=== PATIENT | male | born 1985 | race Caucasian/White ===

== ENCOUNTER 2017-09-26 07:34 | Day surgery (SDC) | payer MEDICAID ==
[~2017-09-26] VITALS: Ht 175.3 cm; Wt 95.9 kg
[~2017-09-26 07:34] MED LIST: CYCL-1 PO; HYDR-565 PO; IBUP-1985 PO; KETO10TA2 PO; NO HOME MEDS; ONDA4TAB6 PO
[2017-09-26] MEDS ORDERED: MIDAZolam 5mg/ml 2ml vial ONE (07:43)
[2017-09-26] MEDS ORDERED: fentaNYL/PF 50MCG/1 ML 2ML syringe ONE (07:43)
[2017-09-26] MEDS ORDERED: LIDOcaine Viscous 15ml cup ONE (07:43)
[2017-09-26 08:20] VITALS: BP 119/79
[2017-09-26 10:05] VITALS: BP 114/67
[2017-09-26 10:15] VITALS: BP 114/68
[2017-09-26 10:25] VITALS: BP 121/64
[2017-09-26 10:35] VITALS: BP 116/62
== END 2017-09-26 10:40 | disposition home or self-care (01) ==
LOC: GI LAB 07:34
PROVIDERS: ATTEND Internal Medicine Gastroenterology
DX: K63.89 Other specified diseases of intestine (principal); K29.50 Unspecified chronic gastritis without bleeding
CPT/HCPCS: 43239; 45380; 99152; 99153; J2250; J3010; J7030; A4620; G0500

== ENCOUNTER 2017-12-15 09:46 | Emergency (ER) | payer MEDICAID ==
[~2017-12-15 09:46] MED LIST changes: -CYCL-1 PO; -HYDR-565 PO; -IBUP-1985 PO; -KETO10TA2 PO; -ONDA4TAB6 PO
== END 2017-12-15 10:53 | disposition left against medical advice (07) ==
LOC: ER 09:46
DX: M54.9 Dorsalgia, unspecified (principal); R42 Dizziness and giddiness; Z53.21 Procedure and treatment not carried out due to patient leaving prior to being seen by health care provider

== ENCOUNTER → 2017-12-20 | Emergency (ER) | payer MEDICAID ==
[~2017-12-20] VITALS: Ht 175.3 cm; Wt 90.0 kg
[2017-12-20 11:57] LABS: BASOPHILS % (AUTO) 0.5 % (0-1); EOSINOPHILS # (AUTO) 0.1 X10'3 (0-0.9); EOSINOPHILS % (AUTO) 1.4 % (0-6); HEMATOCRIT 46.3 % (42.0-52.0); HEMOGLOBIN 16.2 g/dl (14.0-17.9); LYMPHOCYTES # (AUTO) 1.7 X10'3 (1.1-4.8); LYMPHOCYTES % (AUTO) 28.9 % (21-51); MEAN CORPUSCULAR HEMOGLOBIN 31.3 PG (27.0-31.0); MEAN CORPUSCULAR VOLUME 89.5 FL (78-98); MEAN PLATELET VOLUME 8.6 FL (7.4-10.4); MONOCYTES # (AUTO) 0.2 X10'3 (0-0.9); MONOCYTES % (AUTO) 3.9 % (2-12); NEUTROPHILS # (AUTO) 3.8 X10'3 (1.8-7.7); NEUTROPHILS % (AUTO) 65.3 % (42-75); PLATELET COUNT 168 X10'3 (140-440); RED BLOOD COUNT 5.17 X10'6 (4.70-6.10); RED CELL DISTRIBUTION WIDTH 12.9 % (11.5-14.5); WHITE BLOOD COUNT 5.8 X10'3 (4.5-11.0)
[2017-12-20 12:10] LABS: ALANINE AMINOTRANSFERASE 29 U/L (12-78); ALBUMIN 4.2 G/DL (3.4-5.0); ALBUMIN/GLOBULIN RATIO 1.3 (1.1-1.5); ALKALINE PHOSPHATASE 74 IU/L (46-116); ANION GAP 5 (8-16); ASPARTATE AMINO TRANSFERASE 20 U/L (10-37); BILIRUBIN,TOTAL 0.3 MG/DL (0.1-1.0); BLOOD UREA NITROGEN 14 MG/DL (7-18); BUN/CREATININE RATIO 15.6 (5.4-32.0); CALCIUM 8.8 MG/DL (8.5-10.1); CHLORIDE 106 MMOL/L (99-107); GLUCOSE 103 MG/DL (70-104); POTASSIUM 4.2 MMOL/L (3.5-5.1); SODIUM 141 MMOL/L (135-145); TOTAL CARBON DIOXIDE 29.7 MMOL/L (24-32); TOTAL PROTEIN 7.4 G/DL (6.4-8.2); eGFR > 90 ML/MIN
[2017-12-20 14:11] LABS: CLARITY,URINE CLOUDY (Clear); COLOR,URINE YELLOW (Yellow); GLUCOSE, URINE NEGATIVE (Neg); KETONES,URINE NEGATIVE (Neg); LEUKOCYTE ESTERASE ,URINE NEGATIVE (Neg); NITRITES, URINE NEGATIVE (Neg); OCCULT BLOOD,URINE NEGATIVE (Neg); PH,URINE 7.5 (4.8-8.0); PROTEIN,URINE TRACE mg/dl (Neg); UA COLLECTION TYPE CLN CATCH MIDSTREAM; UROBILINOGEN,URINE 0.2 E.U/dL (0.2-1.0)
[2017-12-20 14:24] LABS: AMORPHOUS PHOSPHATES 3+; MUCUS STRANDS MODERATE /LPF (Neg); SQUAMOUS EPITHELIAL CELL,UR FEW /LPF (FEW)
[2017-12-20 14:25] LABS: BACTERIA,URINE FEW /HPF (Neg); RBC,URINE 0-2 /HPF (0-2); WBC,URINE 0-4 /HPF (0-4)
[2017-12-20 16:41] VITALS: BP 130/88
== END | disposition left against medical advice (07) ==
LOC: ER 11:03
DX: R51 Headache (principal); R27.0 Ataxia, unspecified; G60.9 Hereditary and idiopathic neuropathy, unspecified; G89.29 Other chronic pain; F12.10 Cannabis abuse, uncomplicated; F17.200 Nicotine dependence, unspecified, uncomplicated; F15.10 Other stimulant abuse, uncomplicated; Z91.030 Bee allergy status
CPT/HCPCS: 36415; 70450; 80053; 81001; 84484; 85025; 93005; 99285

== ENCOUNTER 2018-07-25 13:55 | Emergency (ER) | payer MEDICAID ==
[~2018-07-25] VITALS: Ht 175.3 cm; Wt 97.5 kg
[2018-07-25 15:12] VITALS: BP 136/76
[2018-07-25 15:18] LABS: BASOPHILS % (AUTO) 0.4 % (0-1); EOSINOPHILS # (AUTO) 0.2 X10'3 (0-0.9); EOSINOPHILS % (AUTO) 2.3 % (0-6); HEMATOCRIT 48.9 % (42.0-52.0); HEMOGLOBIN 16.5 g/dl (14.0-17.9); LYMPHOCYTES # (AUTO) 2.2 X10'3 (1.1-4.8); LYMPHOCYTES % (AUTO) 32.4 % (21-51); MEAN CORPUSCULAR HEMOGLOBIN 30.7 PG (27.0-31.0); MEAN CORPUSCULAR HGB CONC 33.8 % (33.0-36.5); MEAN CORPUSCULAR VOLUME 90.9 FL (78-98); MEAN PLATELET VOLUME 8.8 FL (7.4-10.4); MONOCYTES # (AUTO) 0.3 X10'3 (0-0.9); MONOCYTES % (AUTO) 4.7 % (2-12); NEUTROPHILS # (AUTO) 4.1 X10'3 (1.8-7.7); NEUTROPHILS % (AUTO) 60.2 % (42-75); PLATELET COUNT 182 X10'3 (140-440); RED BLOOD COUNT 5.38 X10'6 (4.70-6.10); RED CELL DISTRIBUTION WIDTH 12.7 % (11.5-14.5); WHITE BLOOD COUNT 6.8 X10'3 (4.5-11.0)
[2018-07-25 15:28] LABS: ALANINE AMINOTRANSFERASE 36 U/L (12-78); ALBUMIN 4.2 G/DL (3.4-5.0); ALBUMIN/GLOBULIN RATIO 1.3 (1.1-1.5); ALKALINE PHOSPHATASE 89 IU/L (46-116); ANION GAP 13 (8-16); ASPARTATE AMINO TRANSFERASE 21 U/L (10-37); BILIRUBIN,TOTAL 0.3 MG/DL (0.1-1.0); BLOOD UREA NITROGEN 8 MG/DL (7-18); BUN/CREATININE RATIO 10.4 (5.4-32.0); CALCIUM 8.8 MG/DL (8.5-10.1); CHLORIDE 103 MMOL/L (99-107); CREATININE 0.77 MG/DL (0.60-1.10); GLUCOSE 94 MG/DL (70-104); LIPASE 120 U/L (73-393); POTASSIUM 4.4 MMOL/L (3.5-5.1); SODIUM 140 MMOL/L (135-145); TOTAL CARBON DIOXIDE 24.3 MMOL/L (24-32); TOTAL PROTEIN 7.5 G/DL (6.4-8.2); eGFR > 90 ML/MIN
[2018-07-25 16:07] LABS: INR 0.9 INR; PROTHROMBIN TIME 9.6 SECONDS (9.0-12.0)
[2018-07-25 16:18] LABS: CLARITY,URINE CLEAR (Clear); COLOR,URINE STRAW (Yellow); GLUCOSE, URINE NEGATIVE (Neg); KETONES,URINE NEGATIVE (Neg); LEUKOCYTE ESTERASE ,URINE NEGATIVE (Neg); NITRITES, URINE NEGATIVE (Neg); OCCULT BLOOD,URINE TRACE-INTACT (Neg); PROTEIN,URINE NEGATIVE (Neg); UROBILINOGEN,URINE 0.2 E.U/dL (0.2-1.0)
[2018-07-25 16:22] LABS: UA COLLECTION TYPE VOIDED
[2018-07-25 16:40] LABS: BACTERIA,URINE FEW /HPF (Neg); RBC,URINE 0-2 /HPF (0-2); SQUAMOUS EPITHELIAL CELL,UR FEW /LPF (FEW); WBC,URINE 0-4 /HPF (0-4)
[2018-07-25] MEDS ORDERED: PENI500T2 PO (17:10)
== END 2018-07-25 17:18 | disposition home or self-care (01) ==
LOC: ER 13:55
DX: R10.32 Left lower quadrant pain (principal); R11.2 Nausea with vomiting, unspecified; K08.89 Other specified disorders of teeth and supporting structures; R42 Dizziness and giddiness; R19.7 Diarrhea, unspecified; G89.29 Other chronic pain; K21.9 Gastro-esophageal reflux disease without esophagitis; F17.200 Nicotine dependence, unspecified, uncomplicated; F12.10 Cannabis abuse, uncomplicated; F15.10 Other stimulant abuse, uncomplicated; Z91.030 Bee allergy status; Z79.899 Other long term (current) drug therapy
CPT/HCPCS: 36415; 80053; 81001; 83690; 85025; 85610; 99283

== ENCOUNTER 2018-10-27 02:25 | Emergency (ER) | payer MEDICAID ==
[~2018-10-27] VITALS: Ht 175.3 cm; Wt 99.2 kg
[2018-10-27 02:59] VITALS: BP 162/105
[2018-10-27] MEDS ORDERED: ketorolac trometh inj. 60 MG/2 ML VIAL IM ONE (03:05)
[2018-10-27] MEDS ORDERED: ondansetron 4mg rapidly disintigrating tab PO ONE (03:05)
[2018-10-27] MEDS ORDERED: HYDROcodone/acetaminophen 5mg/325mg tablet PO ONE (03:05)
[2018-10-27 03:20] LABS: CLARITY,URINE SLIGHTLY CLOUDY (Clear); COLOR,URINE YELLOW (Yellow); GLUCOSE, URINE NEGATIVE (Neg); KETONES,URINE TRACE mg/dl (Neg); LEUKOCYTE ESTERASE ,URINE NEGATIVE (Neg); NITRITES, URINE NEGATIVE (Neg); OCCULT BLOOD,URINE LARGE (Neg); PH,URINE 5.5 (4.8-8.0); PROTEIN,URINE TRACE mg/dl (Neg); UROBILINOGEN,URINE 0.2 E.U/dL (0.2-1.0)
[2018-10-27 03:27] LABS: UA COLLECTION TYPE CLN CATCH MIDSTREAM
[2018-10-27 03:28] LABS: RBC,URINE 50-100 /HPF (0-2); WBC,URINE 0-4 /HPF (0-4)
[2018-10-27 03:29] LABS: BACTERIA,URINE FEW /HPF (Neg); SQUAMOUS EPITHELIAL CELL,UR FEW /LPF (FEW)
[2018-10-27] MEDS ORDERED: azithromycin 250mg tablet PO ONE (04:05)
[2018-10-27] MEDS ORDERED: CefTRIAXone 1000mg IM Kit (w/lidocaine diluent) IM ONE (04:05)
[2018-10-27] MEDS ORDERED: DOXY100C43 PO (04:07)
[2018-10-27 06:43] LABS: URINE AMPHETAMINE SCREEN NEGATIVE (Neg); URINE BARBITUATE SCREEN NEGATIVE (Neg); URINE BENZODIAZEPINES SCREEN NEGATIVE (Neg); URINE CANNABINOID SCREEN POSITIVE (Neg); URINE COCAINE SCREEN NEGATIVE (Neg); URINE METHADONE SCREEN NEGATIVE (Neg); URINE OPIATE SCREEN NEGATIVE (Neg); URINE PHENCYCLIDINE SCREEN NEGATIVE (Neg)
== END 2018-10-27 04:23 | disposition home or self-care (01) ==
LOC: ER 02:26
DX: N45.1 Epididymitis (principal); R31.9 Hematuria, unspecified; K21.9 Gastro-esophageal reflux disease without esophagitis; G89.29 Other chronic pain; M54.9 Dorsalgia, unspecified; F12.90 Cannabis use, unspecified, uncomplicated; F15.90 Other stimulant use, unspecified, uncomplicated; Z91.030 Bee allergy status
CPT/HCPCS: 76870; 80305; 81001; 96372; 99284; J0696; J1885

== ENCOUNTER 2018-12-13 16:39 | Emergency (ER) | payer MEDICAID ==
[~2018-12-13] VITALS: Ht 175.3 cm; Wt 98.2 kg
[2018-12-13 16:43] VITALS: BP 167/78
[2018-12-13] MEDS ORDERED: metoclopramide 5 mg/ml inj IM ONE (18:15)
== END 2018-12-13 18:42 | disposition home or self-care (01) ==
LOC: ER 16:39
DX: F43.21 Adjustment disorder with depressed mood (principal); K21.9 Gastro-esophageal reflux disease without esophagitis; G89.29 Other chronic pain; F12.90 Cannabis use, unspecified, uncomplicated; F15.90 Other stimulant use, unspecified, uncomplicated; Z88.0 Allergy status to penicillin; Z91.030 Bee allergy status
CPT/HCPCS: 99284; J2765

== ENCOUNTER 2019-07-10 14:11 | Emergency (ER) | payer MEDICAID ==
[~2019-07-10] VITALS: Ht 175.3 cm; Wt 97.7 kg
[2019-07-10] MEDS ORDERED: normal saline 1000ML IV soln IVB ONE (14:30)
[2019-07-10 14:56] LABS: BASOPHILS % (AUTO) 0.7 % (0-1); EOSINOPHILS # (AUTO) 0.2 X10'3 (0-0.9); HEMATOCRIT 45.5 % (42.0-52.0); HEMOGLOBIN 15.6 g/dl (14.0-17.9); LYMPHOCYTES # (AUTO) 2.6 X10'3 (1.1-4.8); LYMPHOCYTES % (AUTO) 42.5 % (21-51); MEAN CORPUSCULAR HEMOGLOBIN 31.4 PG (27.0-31.0); MEAN CORPUSCULAR HGB CONC 34.3 g/dL (33.0-36.5); MEAN CORPUSCULAR VOLUME 91.7 FL (78-98); MEAN PLATELET VOLUME 9.2 FL (7.4-10.4); MONOCYTES # (AUTO) 0.4 X10'3 (0-0.9); MONOCYTES % (AUTO) 5.9 % (2-12); NEUTROPHILS # (AUTO) 2.9 X10'3 (1.8-7.7); NEUTROPHILS % (AUTO) 46.9 % (42-75); PLATELET COUNT 157 X10'3 (140-440); RED BLOOD COUNT 4.96 X10'6 (4.70-6.10); RED CELL DISTRIBUTION WIDTH 12.9 % (11.5-14.5); WHITE BLOOD COUNT 6.1 X10'3 (4.5-11.0)
[2019-07-10 15:11] LABS: ALANINE AMINOTRANSFERASE 16 U/L (12-78); ALBUMIN 3.8 G/DL (3.4-5.0); ALBUMIN/GLOBULIN RATIO 1.2 (1.1-1.5); ALKALINE PHOSPHATASE 82 IU/L (46-116); ANION GAP 9 (8-16); ASPARTATE AMINO TRANSFERASE 18 U/L (10-37); BILIRUBIN,TOTAL 0.4 MG/DL (0.1-1.0); BLOOD UREA NITROGEN 10 MG/DL (7-18); BUN/CREATININE RATIO 13.9 (5.4-32.0); CALCIUM 8.1 MG/DL (8.5-10.1); CHLORIDE 104 MMOL/L (99-107); CREATININE 0.72 MG/DL (0.60-1.10); GLUCOSE 86 MG/DL (70-104); SODIUM 138 MMOL/L (135-145); TOTAL CARBON DIOXIDE 24.7 MMOL/L (24-32); TOTAL PROTEIN 6.9 G/DL (6.4-8.2); eGFR > 90 ML/MIN
[2019-07-10] MEDS ORDERED: HYDROcodone/acetaminophen 5mg/325mg tablet PO ONE (15:45)
[2019-07-10] MEDS ORDERED: ketorolac trometh. 30mg/ml inj. IV ONE (15:45)
[2019-07-10 15:58] VITALS: BP 143/93
== END 2019-07-10 16:00 | disposition home or self-care (01) ==
LOC: ER 14:12
DX: R07.89 Other chest pain (principal); K21.9 Gastro-esophageal reflux disease without esophagitis; G89.29 Other chronic pain; F12.90 Cannabis use, unspecified, uncomplicated; F15.90 Other stimulant use, unspecified, uncomplicated; Z22.7 Latent tuberculosis; Z98.890 Other specified postprocedural states; Z88.0 Allergy status to penicillin; Z91.030 Bee allergy status
CPT/HCPCS: 36415; 71045; 80053; 85025; 93005; 96374; 99284; J1885; J7030

== ENCOUNTER 2019-09-21 11:26 | Emergency (ER) | payer MEDICAID ==
[~2019-09-21] VITALS: Ht 175.3 cm; Wt 95.8 kg
[2019-09-21 12:50] VITALS: BP 104/62
== END 2019-09-21 13:19 | disposition home or self-care (01) ==
LOC: ER 11:26
DX: J20.9 Acute bronchitis, unspecified (principal); B34.9 Viral infection, unspecified; K21.9 Gastro-esophageal reflux disease without esophagitis; G89.29 Other chronic pain; F12.90 Cannabis use, unspecified, uncomplicated; F15.90 Other stimulant use, unspecified, uncomplicated; Z98.890 Other specified postprocedural states; Z88.0 Allergy status to penicillin; Z91.030 Bee allergy status
CPT/HCPCS: 71045; 99283

== ENCOUNTER 2022-12-27 11:08 | Emergency (ER) | payer MEDICAID ==
[~2022-12-27] VITALS: Ht 175.3 cm; Wt 121.0 kg
[2022-12-27 11:09] VITALS: BP 152/80
[2022-12-27] MEDS ORDERED: azithromycin 250mg tablet PO ONE (12:05)
[2022-12-27] MEDS ORDERED: CefTRIAXone 500MG IM Kit w/LIDOcaine IM ONE (12:05)
== END 2022-12-27 12:31 | disposition home or self-care (01) ==
LOC: ER 11:09
DX: A64 Unspecified sexually transmitted disease (principal); G89.29 Other chronic pain; F12.90 Cannabis use, unspecified, uncomplicated; K21.9 Gastro-esophageal reflux disease without esophagitis; F15.90 Other stimulant use, unspecified, uncomplicated; Z88.0 Allergy status to penicillin; Z79.899 Other long term (current) drug therapy; Z91.030 Bee allergy status; Z98.890 Other specified postprocedural states
CPT/HCPCS: 36415; 87491; 87591; 96372; 99283; J0696

== ENCOUNTER 2023-01-24 11:24 | Emergency (ER) | payer MEDICAID ==
[~2023-01-24] VITALS: Ht 175.3 cm; Wt 100.0 kg
[2023-01-24 11:45] LABS: BASOPHILS % (AUTO) 0.6 % (0-1); EOSINOPHILS # (AUTO) 0.1 X10'3 (0-0.9); EOSINOPHILS % (AUTO) 1.6 % (0-6); HEMOGLOBIN 15.3 g/dl (14.0-17.9); LYMPHOCYTES # (AUTO) 2.4 X10'3 (1.1-4.8); MEAN CORPUSCULAR VOLUME 91.2 FL (78-98); MEAN PLATELET VOLUME 8.5 FL (7.4-10.4); MONOCYTES # (AUTO) 0.3 X10'3 (0-0.9); MONOCYTES % (AUTO) 4.1 % (2-12); NEUTROPHILS % (AUTO) 58.7 % (42-75); PLATELET COUNT 152 X10'3 (140-440); RED BLOOD COUNT 4.93 X10'6 (4.70-6.10); RED CELL DISTRIBUTION WIDTH 12.8 % (11.5-14.5); WHITE BLOOD COUNT 6.8 X10'3 (4.5-11.0)
[2023-01-24 11:58] LABS: ALANINE AMINOTRANSFERASE 40 U/L (12-78); ALBUMIN 3.7 G/DL (3.4-5.0); ALBUMIN/GLOBULIN RATIO 1.3 (1.1-1.5); ALKALINE PHOSPHATASE 85 IU/L (46-116); ANION GAP 11 (8-16); ASPARTATE AMINO TRANSFERASE 28 U/L (10-37); BILIRUBIN,TOTAL 0.3 MG/DL (0.1-1.0); BLOOD UREA NITROGEN 14 MG/DL (7-18); BUN/CREATININE RATIO 16.5 (10.0-20.0); CHLORIDE 106 MMOL/L (99-107); CREATININE 0.85 MG/DL (0.60-1.10); GLUCOSE 115 MG/DL (70-104); POTASSIUM 3.9 MMOL/L (3.5-5.1); SODIUM 138 MMOL/L (135-145); TOTAL CARBON DIOXIDE 21.1 MMOL/L (24-32); TOTAL PROTEIN 6.5 G/DL (6.4-8.2); eGFR > 90 ML/MIN
[2023-01-24] MEDS ORDERED: ketorolac trometh. 30mg/ml inj. IM ONE (13:10)
[2023-01-24] MEDS ORDERED: ketorolac tromethamine 15mg/ml inj. IM ONE (13:15)
[2023-01-24 13:48] LABS: D-DIMER < 0.19 MG/L FEU (0-0.50)
[2023-01-24 13:51] VITALS: BP 118/77
== END 2023-01-24 14:11 | disposition home or self-care (01) ==
LOC: ER 11:24
DX: R09.1 Pleurisy (principal); K21.9 Gastro-esophageal reflux disease without esophagitis; F12.90 Cannabis use, unspecified, uncomplicated; F15.20 Other stimulant dependence, uncomplicated; Z88.0 Allergy status to penicillin; Z91.030 Bee allergy status
CPT/HCPCS: 36415; 71045; 80053; 83880; 84145; 84484; 85025; 85379; 93005; 96372; 99285; J1885

== ENCOUNTER 2024-02-09 15:52 | Emergency (ER) | payer MEDICAID ==
[~2024-02-09] VITALS: Ht 175.3 cm; Wt 103.0 kg
[2024-02-09 16:34] LABS: BASOPHILS # (AUTO) 0.1 X10'3 (0-0.2); BASOPHILS % (AUTO) 0.7 % (0-1); EOSINOPHILS # (AUTO) 0.1 X10'3 (0-0.9); EOSINOPHILS % (AUTO) 1.2 % (0-6); HEMATOCRIT 46.5 % (42.0-52.0); HEMOGLOBIN 15.8 g/dl (14.0-17.9); LYMPHOCYTES # (AUTO) 2.7 X10'3 (1.1-4.8); LYMPHOCYTES % (AUTO) 32.9 % (21-51); MEAN CORPUSCULAR HEMOGLOBIN 31.1 PG (27.0-31.0); MEAN CORPUSCULAR HGB CONC 33.9 g/dL (33.0-36.5); MEAN CORPUSCULAR VOLUME 91.6 FL (78-98); MEAN PLATELET VOLUME 9.1 FL (7.4-10.4); MONOCYTES # (AUTO) 0.3 X10'3 (0-0.9); MONOCYTES % (AUTO) 3.2 % (2-12); PLATELET COUNT 174 X10'3 (140-440); RED BLOOD COUNT 5.08 X10'6 (4.70-6.10); WHITE BLOOD COUNT 8.1 X10'3 (4.5-11.0)
[2024-02-09 16:58] LABS: ALANINE AMINOTRANSFERASE 37 U/L (12-78); ALBUMIN/GLOBULIN RATIO 1.2 (1.1-1.5); ALKALINE PHOSPHATASE 86 IU/L (46-116); ANION GAP 15 (8-16); ASPARTATE AMINO TRANSFERASE 24 U/L (10-37); BILIRUBIN,TOTAL 0.5 MG/DL (0.1-1.0); BLOOD UREA NITROGEN 11 MG/DL (7-18); BUN/CREATININE RATIO 10.4 (10.0-20.0); CALCIUM 8.6 MG/DL (8.5-10.1); CHLORIDE 102 MMOL/L (99-107); CREATININE 1.06 MG/DL (0.60-1.10); GLUCOSE 158 MG/DL (70-104); POTASSIUM 3.3 MMOL/L (3.5-5.1); PRO BRAIN NATRIURETIC PEPTIDE 50 PG/ML (0-125); SODIUM 139 MMOL/L (135-145); TOTAL CARBON DIOXIDE 22.3 MMOL/L (24-32); TOTAL PROTEIN 7.3 G/DL (6.4-8.2); eCRCL 93 ML/MIN; eGFR 77 ML/MIN
[2024-02-09] MEDS ORDERED: BUDE10.22 INH (17:08)
[2024-02-09] MEDS ORDERED: ALBU8HFA INH (17:08)
[2024-02-09] MEDS: ipratropium/albuterol 3ml nebule NEB ONE (17:30)
[2024-02-09 17:32] VITALS: PULSE 58; RESP 14; O2SAT 99
[2024-02-09 17:41] VITALS: PULSE 67; RESP 14; O2SAT 99
[2024-02-09 17:51] VITALS: BP 155/106; PULSE 78; RESP 27; TEMP 98.5; O2SAT 98
== END 2024-02-09 17:53 | disposition home or self-care (01) ==
LOC: ER 15:52
DX: J44.9 Chronic obstructive pulmonary disease, unspecified (principal); K21.9 Gastro-esophageal reflux disease without esophagitis; F12.90 Cannabis use, unspecified, uncomplicated; F15.90 Other stimulant use, unspecified, uncomplicated; Z88.0 Allergy status to penicillin; Z91.030 Bee allergy status
CPT/HCPCS: 36415; 71045; 80053; 83880; 84484; 85025; 93005; 94640; 94760; 99285

== ENCOUNTER 2025-01-28 13:40 | Emergency (ER) | payer MEDICAID ==
[~2025-01-28] VITALS: Ht 175.3 cm; Wt 72.3 kg
[~2025-01-28 13:40] MED LIST changes: +BUDE10.22 INH
--- NOTE | 2025-01-28 14:35 | Physician Documentation ---
History of Present Illness ~ Chief Complaint: Weakness Stated Complaint: "CONFUSED/SHAKY" Time Seen by MD: 15:27 OK to notify your PCP?: Yes Primary Medical Doctor: [facility] Source: patient Mode of Arrival: POV Exam Limitations: no limitations HPI 39-year-old male presents with confusion and feeling 'out of it' for weeks. He states that today he went out to get his car for work and could not find it. Alert and oriented at this time denies any headache, blurry vision or lightheadedness. NIH negative. History as above In addition this patient states that he has felt dizzy and lightheaded. 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 Medication Reconciliation Allergies: Coded Allergies: Penicillins (Verified Allergy, Severe, ANAPHYLAXSIS, HARD TIME BREATHING, HANDS SWELLED UP, HIVES, 02/09/24) venom-honey bee (Verified Allergy, Unknown, 02/09/24) Scheduled Budesonide/Formoterol Fumarate (Symbicort 80-4.5 Mcg Inhaler), 2 PUFFS INH Q12H Miscellaneous Medications Home Med List (No Home Medications), (Reported) Past Medical History Past Medical History: GERD, *RENAL/*, Chronic Back Pain Past Surgical History: other Other Past Surgical History: ear surgery Other Past Family History: Family history of cancer Alcohol Use: None Drug Use: marijuana, methamphetamine Lives with: Family Lives In: Home Occupation: employed Review of Systems All Other Systems at this time: Reviewed and Negative Physical Exam Vital Signs: RN Vital Signs have been reviewed: Yes, Temperature: 98.8, Source: Temporal, Heart Rate: 56, Respiratory Rate: 15, BP: 132/78, Pulse Oximetry: 98, Weight: 72.300 Pulse Oximetry Reflects: adequate oxygenation Physical Exam General: Alert, no distress. HEENT: No injection, moist mucous membranes. Mild erythema in in right external auditory canal Neck: Full range of motion. Neurologic: Oriented x4. Neurologically intact Psychiatric: Normal mood and affect. Skin: Normal color, warm and dry. Progress Results/Orders Results/Orders Orders - GRAEME HARDWICK REFLOW OPERATOR Ct Head (01/28/25 17:35) Completed Orders - GRAEME HARDWICK REFLOW OPERATOR Ct Head (01/28/25 17:35) Iohexol 300mg/Ml 100ml Inj. (Omnipaque-3 (01/28/25 17:20) Vital Signs 01/28/25 01/28/25 01/28/25 13:57 15:01 16:12 Temp 98.8 Pulse 56 55 55 Resp 15 14 17 B/P (MAP) 132/78 128/86 (100) 110/71 (84) Pulse Ox 98 98 97 O2 Flow Rate 0 Laboratory Tests Test 01/28/25 15:00 01/28/25 15:21 Urine Specimen Description Non-specified Urine Color Yellow Urine Clarity Slightly cloudy Urine pH 6.0 Urine Specific [place] 1.015 Urine Protein Negative Urine Glucose (UA) Negative Urine Ketones Negative Urine Occult Blood Trace-intact Urine Nitrite Negative Urine Bilirubin Negative Urine Urobilinogen 0.2 Urine Leukocyte Esterase Negative Urine RBC 0-2 Urine WBC 0-4 Urine Squamous Epithelial Cells Few Urine Transitional Epithelial Cells Few Urine Uric Acid Crystals Few Urine Bacteria Few Urine Culture Indicated Not ind Volume Urine Centrifuged 10 ml Urine Comment White Blood Count 7.5 Red Blood Count 4.97 Hemoglobin 15.6 Hematocrit 44.7 Mean Corpuscular Volume 89.8 Mean Corpuscular Hemoglobin 31.3 H Mean Corpuscular Hemoglobin Concent 34.9 Red Cell Distribution Width 13.0 Platelet Count 172 Mean Platelet Volume 8.5 Neutrophils (%) (Auto) 55.6 Lymphocytes (%) (Auto) 37.3 Monocytes (%) (Auto) 4.7 Eosinophils (%) (Auto) 1.7 Basophils (%) (Auto) 0.7 Neutrophils # (Auto) 4.2 Lymphocytes # (Auto) 2.8 Monocytes # (Auto) 0.3 Eosinophils # (Auto) 0.1 Basophils # (Auto) 0.0 CBC Comment Sodium Level 135 Potassium Level 3.7 Chloride Level 103 Carbon Dioxide Level 25.1 Anion Gap 7 L Blood Urea Nitrogen 10 Creatinine 0.78 Estimated GFR/1.73 m2 > 90 BUN/Creatinine Ratio 12.8 Glucose Level 86 Calcium Level 8.4 L Total Bilirubin 0.5 Aspartate Amino Transf (AST/SGOT) 19 Alanine Aminotransferase (ALT/SGPT) 29 Alkaline Phosphatase 86 Total Protein 6.8 Albumin 3.7 Globulin 3.1 Albumin/Globulin Ratio 1.2 Chemistry Comments Medical Decision Making Findings Based on patient's history of mastoiditis and concerns over tumors combined with the patient's complaint and presentation: I opted to scan is head via CT. No findings that were concerning. His laboratory values are reassuring. Going to advise patient to take medication as prescribed and follow up with primary care Differential Dx:Considerations: Include: anemia, CVA, dehydration, dysrhythmia, electrolyte imbalance, encephalopathy, Guillain-Adrian, hypoglycemia, hypotension, hypovolemia, labyrinthitis, Meniere's disease, myasathenia gravis, myocardial infarction, pulmonary embolus, renal failure, respiratory failure, TIA, VBI, vertigo central, vertigo peripheral, vestibular neuronitis, other Departure Disposition: HOME / SELF CARE / HOMELESS Impression: Primary Impression: Dehydration Additional Impression: Dizziness Condition: Stable Discharge Instructions: Otitis Externa, [id number] Referrals: NO PRIMARY CARE PROVIDER (PCP) Prescriptions Meclizine HCl (Meclizine HCl) 12.5 Mg Tablet 1 TAB PO Q8H for dizziness for 10 Days, #30 TAB 0 Refills Prov: GRAEME HARDWICK NP 01/28/25 Acetic Acid (Acetic Acid) 2 % Solution 4 DROP RIGHT EAR Q12H for 7 Days, #15 ML 0 Refills Prov: GRAEME HARDWICK NP 01/28/25 Additional Comment Medical Screen Exam This patient recieved a medical screening examination. After reviewing the individual's medical complaints with presenting symptoms and performing an appropriate physical examination, it was determined that no immediate life- threatening emergency medical condition is present. This individual is also not a women having contractions. Signature Scribe Signature: y Attestation: Scribed for Graeme Hardwick Resource Development Manager by Graeme Jerome NP . 01/28/25 16:30 LIZ FUENTES Jan 28, 2025 14:34 GRAEME HARDWICK NP Jan 28, 2025 16:31
[2025-01-28 15:28] LABS: BASOPHILS % (AUTO) 0.7 % (0-1); EOSINOPHILS # (AUTO) 0.1 X10'3 (0-0.9); EOSINOPHILS % (AUTO) 1.7 % (0-6); HEMATOCRIT 44.7 % (42.0-52.0); HEMOGLOBIN 15.6 g/dl (14.0-17.9); LYMPHOCYTES # (AUTO) 2.8 X10'3 (1.1-4.8); LYMPHOCYTES % (AUTO) 37.3 % (21-51); MEAN CORPUSCULAR HEMOGLOBIN 31.3 PG (27.0-31.0); MEAN CORPUSCULAR HGB CONC 34.9 g/dL (33.0-36.5); MEAN CORPUSCULAR VOLUME 89.8 FL (78-98); MEAN PLATELET VOLUME 8.5 FL (7.4-10.4); MONOCYTES # (AUTO) 0.3 X10'3 (0-0.9); MONOCYTES % (AUTO) 4.7 % (2-12); NEUTROPHILS # (AUTO) 4.2 X10'3 (1.8-7.7); NEUTROPHILS % (AUTO) 55.6 % (42-75); PLATELET COUNT 172 X10'3 (140-440); RED BLOOD COUNT 4.97 X10'6 (4.70-6.10); WHITE BLOOD COUNT 7.5 X10'3 (4.5-11.0)
[2025-01-28 15:30] LABS: BILIRUBIN,URINE NEGATIVE (Neg); COLOR,URINE YELLOW (Yellow); GLUCOSE, URINE NEGATIVE (Neg); KETONES,URINE NEGATIVE (Neg); LEUKOCYTE ESTERASE ,URINE NEGATIVE (Neg); NITRITES, URINE NEGATIVE (Neg); OCCULT BLOOD,URINE TRACE-INTACT (Neg); PROTEIN,URINE NEGATIVE (Neg); UROBILINOGEN,URINE 0.2 E.U/dL (0.2-1.0)
[2025-01-28 15:35] LABS: UA COLLECTION TYPE NON-SPECIFIED
[2025-01-28 15:36] LABS: CLARITY,URINE SLIGHTLY CLOUDY (Clear)
[2025-01-28 15:43] LABS: BACTERIA,URINE FEW /HPF (Neg); SQUAMOUS EPITHELIAL CELL,UR FEW /LPF (FEW)
[2025-01-28 15:44] LABS: RBC,URINE 0-2 /HPF (0-2)
[2025-01-28 15:47] LABS: WBC,URINE 0-4 /HPF (0-4)
[2025-01-28 15:50] LABS: TRANSITIONAL EPI CELLS,URINE FEW /HPF
[2025-01-28 15:53] LABS: URIC ACID CRYSTALS FEW /HPF (NEGATIVE)
[2025-01-28 15:57] LABS: ALANINE AMINOTRANSFERASE 29 U/L (12-78); ALBUMIN 3.7 G/DL (3.4-5.0); ALBUMIN/GLOBULIN RATIO 1.2 (1.1-1.5); ALKALINE PHOSPHATASE 86 IU/L (46-116); ANION GAP 7 (8-16); ASPARTATE AMINO TRANSFERASE 19 U/L (10-37); BILIRUBIN,TOTAL 0.5 MG/DL (0.1-1.0); BLOOD UREA NITROGEN 10 MG/DL (7-18); BUN/CREATININE RATIO 12.8 (10.0-20.0); CALCIUM 8.4 MG/DL (8.5-10.1); CHLORIDE 103 MMOL/L (99-107); CREATININE 0.78 MG/DL (0.60-1.10); GLUCOSE 86 MG/DL (70-104); POTASSIUM 3.7 MMOL/L (3.5-5.1); SODIUM 135 MMOL/L (135-145); TOTAL CARBON DIOXIDE 25.1 MMOL/L (24-32); TOTAL PROTEIN 6.8 G/DL (6.4-8.2); eCRCL 125 ML/MIN; eGFR > 90 ML/MIN
[2025-01-28] MEDS ORDERED: iohexol 300mg/ml 100ml inj. ONE (17:20)
--- NOTE | 2025-01-28 18:29 | RADIOLOGY REPORT ---
EXAM: CT CT HEAD INDICATION: weakness with History of tumors TECHNIQUE: CT of the head with intravenous contrast. 100 mL of Omni 300 was injected. Radiation Dose : 1. Head: CT Dose: CTDI volume is 60 mGy. Dose-length product is 1160 mGy*cm The dose indicators for CT are the volume Computed Tomography (CT) Dose Index (CTDIvol) and the Dose Length Product (DLP), and are measured in units of mGy and mGy-cm, respectively. These indicators are not patient dose, but values generated from the CT scanner acquisition factors. The report includes radiation exposure data for exposures received during this examination. COMPARISON: None FINDINGS: There is no evidence of acute intracranial hemorrhage, extra-axial collection, mass effect, midline s hift, herniation or hydrocephalus. The ventricles, sulci and cisterns are age appropriate. The nichole-white differentiation is intact. Patchy periventricular and subcortical white matter hypoattenuation is nonspecific but may be related to small vessel ischemic disease. The visualized paranasal sinuses and mastoid air cells are clear. The surrounding soft tissues and osseous structures are unremarkable. IMPRESSION: 1. No acute intracranial abnormality. Radiation optimization: All CT scans at this facility use at least one of these dose optimization sushant hniques: automated exposure control mA and/or kV adjustment per patient size (includes targeted exam s where dose is matched to clinical indication) or iterative reconstruction.
[2025-01-28] MEDS ORDERED: ACET15SO14 RIGHT EAR (18:36)
[2025-01-28] MEDS ORDERED: MECL-226 PO (18:36)
[2025-01-28 18:40] VITALS: BP 132/80; PULSE 78; RESP 12; TEMP 98.2; O2SAT 99
== END 2025-01-28 18:41 | disposition home or self-care (01) ==
LOC: ER 13:42
DX: E86.0 Dehydration (principal); R42 Dizziness and giddiness; K21.9 Gastro-esophageal reflux disease without esophagitis; F12.90 Cannabis use, unspecified, uncomplicated; F15.90 Other stimulant use, unspecified, uncomplicated; Z88.0 Allergy status to penicillin; Z91.030 Bee allergy status; Z79.899 Other long term (current) drug therapy
CPT/HCPCS: 36415; 70460; 80053; 81001; 85025; 99285; Q9967

== ENCOUNTER 2025-04-22 11:46 | Emergency (ER) | payer MEDICAID ==
[~2025-04-22] VITALS: Ht 175.3 cm; Wt 98.6 kg
[~2025-04-22 11:46] MED LIST changes: +ACET15SO14 RIGHT EAR; +MECL-226 PO
[2025-04-22 11:55] VITALS: TEMP 99
--- NOTE | 2025-04-22 12:04 | Physician Documentation ---
History of Present Illness ~ Chief Complaint: Testicular Pain Stated Complaint: ABD PAIN Time Seen by MD: 12:03 Primary Medical Doctor: FLORA NOGUEIRA HPI 39-year-old male presenting with testicular pain and dysuria He tells me that over the past couple of days he has been having pain and intermittent swelling in his testicles, as well as pain that radiates up into his lower abdomen. This is in both testicles in both sides of his lower abdomen. He also reports some difficulty and discomfort with urination. No fevers or chills. No upper abdominal pain. No nausea or vomiting. No diarrhea. He is sexually active, with women only. He does use cock rings, but no other sex toys. No history of STI. No history of testicular issues as an adult. No other acute concerns Medication Reconciliation Allergies: Coded Allergies: venom-honey bee (Verified Allergy, Unknown, 04/22/25) Scheduled Acetic Acid (Acetic Acid), 4 DROP RIGHT EAR Q12H Budesonide/Formoterol Fumarate (Symbicort 80-4.5 Mcg Inhaler), 2 PUFFS INH Q12H Doxycycline Hyclate (Doxycycline Hyclate), 1 TAB PO Q12H Meclizine HCl (Meclizine HCl), 1 TAB PO Q8H Miscellaneous Medications Home Med List (No Home Medications), (Reported) Past Medical History Past Medical History: GERD, *RENAL/*, Chronic Back Pain Past Surgical History: other Other Past Surgical History: ear surgery Other Past Family History: Family history of cancer Alcohol Use: None Drug Use: marijuana, methamphetamine Lives with: Family Lives In: Home Occupation: employed Review of Systems Constitutional: Denies: fever Gastrointestinal: Reports: abdominal pain Genitourinary: Reports: dysuria Male Genitalia: Reports: testicular pain Physical Exam Vital Signs: Temperature: 99.0, Source: Temporal, Heart Rate: 63, Respiratory Rate: 16, BP: 128/75, Pulse Oximetry: 99, Weight: 98.600 Oxygen Flow Rate: 0 Physical Exam General: This is a pleasant and nontoxic appearing young man sitting calmly in bed HEENT: Atraumatic, oropharynx is moist Heart: Regular rate, normal-appearing peripheral perfusion Lungs: normal work of breathing, normal oxygen saturation on room air Abdomen: Soft, nondistended, mild tenderness on palpation of the lower abdomen in the groin region bilateral, otherwise nontender, no rebound or guarding : I offered a cooker syrup for the exam, but the patient declined The patient has a normal-appearing uncircumcised penis with 2 descended testicles. His testicles are not significantly swollen or erythematous. He has mild generalized tenderness on palpation of both testicles. No rashes or lesions. No palpable mass or hernia in the groin. Neuro: Alert and oriented Psychiatric: Calm and cooperative with exam Progress Results/Orders Results/Orders Orders - LENA MARIANO MD Us Testic/W/Duplex (04/22/25 12:29) Chlam/Gc Amp Ur (04/22/25 12:40) Completed Orders - LENA MARIANO MD Syphilis Screen Poc (04/22/25 12:29) Us Testic/W/Duplex (04/22/25 12:29) Ua W/Microscopic, Cult If Ind (04/22/25 12:40) Ceftriaxone 500 Im W/Lidocaine (Rocephin (04/22/25 14:25) Doxycycline 100mg Capsule (Vibramycin 10 (04/22/25 14:24) Medications Received in ER Medications (Trade) Dose Ordered Sig/Ida Route PRN Reason Start Time Stop Time Status Last Admin Dose Admin (Rocephin 500MG IM kit (w/1% LIDOcaine)) 500 mg ONCE ONCE IM 04/22/25 14:25 04/22/25 14:26 DC 04/22/25 14:53 500 MG (VIBRAMYCIN 100mg capsule) 100 mg ONCE STAT PO 04/22/25 14:24 04/22/25 14:26 DC 04/22/25 14:53 100 MG Vital Signs 04/22/25 04/22/25 11:55 14:21 Temp 99.0 Pulse 63 55 Resp 16 16 B/P (MAP) 128/75 126/74 (91) Pulse Ox 99 96 O2 Flow Rate 0 0 Laboratory Tests Test 04/22/25 12:40 04/22/25 12:46 Urine Specimen Description Cln catch midstream Urine Color Yellow Urine Clarity Clear Urine pH 6.0 Urine Specific [place] 1.020 Urine Protein Negative Urine Glucose (UA) Negative Urine Ketones Negative Urine Occult Blood Trace-intact Urine Nitrite Negative Urine Bilirubin Negative Urine Urobilinogen 0.2 Urine Leukocyte Esterase Negative Urine RBC None seen Urine WBC None seen Urine Squamous Epithelial Cells None seen Urine Bacteria None seen Urine Culture Indicated Not ind Volume Urine Centrifuged 10 ml Urine Comment Syphilis Serology Negative EKG/XRAY/CT/US/VASC/MRI Ultrasound : Impression I reviewed the ultrasound report, which shows some nonspecific changes to the testicle which could represent early orchitis. Normal blood flow, no evidence of torsion Medical Decision Making Additional Comment The patient presents with testicular pain and dysuria. He does have risk fa ctors for STI. Ultrasound does not show evidence consistent with torsion, does show some mild inflammatory changes. Urinalysis is normal. Syphilis screening is negative. He declined HIV testing. Chlamydia and gonorrhea testing is pending. After shared decision-making conversation, we decided to proceed with testing for STI including ceftriaxone and doxycycline. He was given home care instructions and for a prescription for antibiotics. Departure Time of Disposition: 14:25 Disposition: 01 HOME / SELF CARE / HOMELESS Impression: Primary Impression: Pain in testicle Additional Impression: Dysuria Condition: Stable Referrals: NO PRIMARY CARE PROVIDER (PCP) Prescriptions Doxycycline Hyclate (Doxycycline Hyclate) 100 Mg Tablet 1 TAB PO Q12H for 10 Days, #19 TAB Prov: LENA MARIANO MD 04/22/25 Education Educated: Patient Educated regarding: diagnosis, treatment, need for follow up Signature Scribe Signature: na Attestation: LENA Horne MD Apr 22, 2025 12:04
[2025-04-22 13:05] LABS: LEUKOCYTE ESTERASE ,URINE NEGATIVE (Neg); NITRITES, URINE NEGATIVE (Neg); OCCULT BLOOD,URINE TRACE-INTACT (Neg)
[2025-04-22 13:27] LABS: UA COLLECTION TYPE CLN CATCH MIDSTREAM
--- NOTE | 2025-04-22 13:30 | RADIOLOGY REPORT ---
Procedure: US US TESTIC/W/DUPLEX [facility] Study Date and Requested Time: 04/22/2025 11:54 AM History: Testicle pain and swelling Comparison: None Technique: Multiple high-resolution grayscale images of scrotal contents obtained. Color and spectral Doppler used for evaluation of testicular blood flow. Findings: Right testicle measures 4 x 2.7 x 2.4 cm with mottled echotexture and normal contours. Right epididymal head measures 1.3 cm and is within normal limits. Left testicle measures 4.4 x 2.8 x 3.8 cm with homogenous echotexture and normal contours. Left epididymal head measures 0.9 cm and is within normal limits. Normal testicular color and spectral Doppler flow bilaterally. No evidence of testicular torsion, mass, or hydrocele. Impression: Mottled appearance of the right testicle which demonstrates normal color Doppler flow. Early orchitis / neoplastic process like lymphoma can not be completely . No discrete focal mass is noted. The left testicle is unremarkable.
[2025-04-22 13:55] LABS: SQUAMOUS EPITHELIAL CELL,UR NONE SEEN /LPF (FEW)
[2025-04-22 13:56] LABS: SYPHILIS SCREENING TEST POC NEGATIVE (Negative)
[2025-04-22 14:21] VITALS: BP 126/74; PULSE 55; RESP 16; O2SAT 96
[2025-04-22] MEDS ORDERED: DOXY100T67 PO (14:27)
[2025-04-22] MEDS: DOXYCYCLINE 100MG CAPSULE PO STA (14:53)
[2025-04-22] MEDS: CefTRIAXone 500MG IM Kit w/LIDOcaine IM ONE (14:53)
== END 2025-04-22 15:03 | disposition home or self-care (01) ==
LOC: ER 11:47
DX: N50.819 Testicular pain, unspecified (principal); R30.0 Dysuria; F12.90 Cannabis use, unspecified, uncomplicated; F15.90 Other stimulant use, unspecified, uncomplicated; Z91.030 Bee allergy status
CPT/HCPCS: 36415; 76870; 81001; 87491; 87591; 93976; 96372; 99285; J0696

== ENCOUNTER 2025-07-12 09:00 | Emergency (ER) | payer MEDICAID, OTHER ==
[~2025-07-12] VITALS: Ht 175.3 cm; Wt 97.8 kg
[~2025-07-12 09:00] MED LIST changes: +DOXY100T67 PO
[2025-07-12 09:04] VITALS: BP 137/87; PULSE 89; RESP 20; TEMP 101.8; O2SAT 98
--- NOTE | 2025-07-12 09:55 | Physician Documentation ---
History of Present Illness ~ Chief Complaint: Flu Symptoms Stated Complaint: FLU SYMPTOMS Time Seen by MD: 09:04 OK to notify your PCP?: Yes Primary Medical Doctor: None Source: patient Mode of Arrival: POV Exam Limitations: no limitations HPI Having an exposure to a friend with COVID. Yesterday he started having body aches as well as some nausea and a couple episodes of vomiting. He has not Tylenol or ibuprofen. Reports now he has a cough, sore throat, sinus congestion, body aches and soreness. He reports that he does have some bilatera l chest wall pain which is worse with coughing and tender to touch. He has a history of COPD and does have an albuterol inhaler but has not used it. Medication Reconciliation Allergies: Coded Allergies: venom-honey bee (Verified Allergy, Unknown, 07/12/25) Scheduled Acetic Acid (Acetic Acid), 4 DROP RIGHT EAR Q12H Budesonide/Formoterol Fumarate (Symbicort 80-4.5 Mcg Inhaler), 2 PUFFS INH Q12H Doxycycline Hyclate (Doxycycline Hyclate), 1 TAB PO Q12H Meclizine HCl (Meclizine HCl), 1 TAB PO Q8H Miscellaneous Medications Home Med List (No Home Medications), (Reported) Past Medical History Past Medical History: COPD, GERD, *RENAL/*, Chronic Back Pain Past Surgical History: other Other Past Surgical History: ear surgery Other Past Family History: Family history of cancer Alcohol Use: None Drug Use: marijuana, methamphetamine Lives with: Family Lives In: Home Occupation: employed Review of Systems All Other Systems at this time: Reviewed and Negative Physical Exam Vital Signs: RN Vital Signs have been reviewed: Yes, Temperature: 101.8, Source: Temporal, Heart Rate: 89, Respiratory Rate: 20, BP: 137/87, Pulse Oximetry: 98, Weight: 97.800 Oxygen Flow Rate: 0 Pulse Oximetry Reflects: adequate oxygenation Physical Exam General: Alert, no apparent distress. HEENT: PERRL, EOMI, no injection, moist mucous membranes. Neck: Full range of motion. Respiratory: Lungs clear, no respiratory distress. No wheezes, rales or crackles. Chest: No accessory muscle use. Tenderness to palpation of bilateral chest wall Cardiovascular: Regular rate and rhythm, no murmurs. Gastrointestinal: Soft, nontender, nondistended. Bowels sounds present. Extremities: Normal range of motion, no deformity. Neurologic: Oriented x4. Psychiatric: Normal mood and affect. Skin: Normal color, warm and dry. No edema, no ecchymosis. Progress Results/Orders Reviewed/noted all lab results: Yes Results/Orders Vital Signs 07/12/25 09:04 Temp 101.8 Pulse 89 Resp 20 B/P (MAP) 137/87 Pulse Ox 98 O2 Flow Rate 0 Laboratory Tests Test 07/12/25 09:17 SARS-CoV-2 Antigen (Rapid) Negative Medical Decision Making Additional information obtaine: old records Findings A known exposure to COVID. COVID test was negative today. Physical exam is unremarkable. He did have a elevated temperature on arrival which he was treated with Tylenol and ibuprofen. Fever resolved after administration. No tachycardia or tachypnea. He reports that he was nauseous so I gave him some Z ofran. Discharge instructions as well as follow up instructions. Differential Dx:Considerations: Include: Influenza, Otitis media, Pnuemonitis, Sinusitis, URI Departure Disposition: 01 HOME / SELF CARE / HOMELESS Impression: Primary Impression: Viral infection Condition: Stable Discharge Instructions: Viral Illness Additional Instructions: As discussed you have a viral illness. You were negative for COVID. Unfortunately there are no specific medications we can give you to make the illness and faster. Antibiotics do not work for viral illnesses. However, you can take acetaminophen or ibuprofen to help with fevers and pain. Stay well hydrated and rested. Return to the emergency department if your fevers and c hills continue to worsen after 5 days, if you develop worsening cough with thick sputum, are unable to stay hydrated, or have any new or concerning concerning symptoms. Contact your primary care provider in the next 2-3 days for re- evaluation and to make sure your symptoms are improving. Referrals: NO PRIMARY CARE PROVIDER (PCP) Education Educated: Patient Educated regarding: diagnosis, treatment, prognosis, need for follow up Additional Comment Medical Screen Exam This patient recieved a medical screening examination. After reviewing the individual's medical complaints with presenting symptoms and performing an appropriate physical examination, it was determined that no immediate life- threatening emergency medical condition is present. This individual is also not a women having contractions. I have reviewed this case [id number] with the PA, including physical examination, laboratory and imaging results as appropriate. The patient was evaluated [id number] and I agree with the PA's notes. I agree with the fi ndings, evaluation and disposition. Signature Scribe Signature: . Attestation: Scribed for Daisy Martin by Daisy Martin - JAMES . 07/12/25 10:39 Parts of this note were created using Rafter voice recognition software program. While efforts were made to correct any mistakes made by this voice recognition software program, nonsensical phrases may remain in this note. In addition, there may be errors and syntax, grammar, content and spelling. DAISY MARTIN Jul 12, 2025 09:55 JEANMARIE HEAD MD Jul 12, 2025 18:27
[2025-07-12] MEDS: ondansetron 4mg rapidly disintigrating tab PO ONE (09:58)
[2025-07-12] MEDS: ibuprofen tablet 400 MG TABLET PO ONE (10:12)
== END 2025-07-12 10:46 | disposition home or self-care (01) ==
LOC: ER 09:00
DX: B34.9 Viral infection, unspecified (principal); K21.9 Gastro-esophageal reflux disease without esophagitis; J44.9 Chronic obstructive pulmonary disease, unspecified; F12.90 Cannabis use, unspecified, uncomplicated; F15.90 Other stimulant use, unspecified, uncomplicated; Z91.030 Bee allergy status; Z20.822 Contact with and (suspected) exposure to COVID-19
CPT/HCPCS: 36415; 87811; 99284

== ENCOUNTER 2025-07-12 20:59 | Emergency (ER) | payer OTHER ==
[~2025-07-12] VITALS: Ht 175.3 cm; Wt 100.0 kg
[2025-07-12 21:02] VITALS: BP 122/86; PULSE 94; RESP 16; TEMP 102.4; O2SAT 96
[2025-07-12] MEDS: ibuprofen tablet 400 MG TABLET PO ONE (21:24)
== END 2025-07-13 05:35 | disposition home or self-care (01) ==
LOC: ER 21:00
DX: R05.9 Cough, unspecified (principal); R50.9 Fever, unspecified; R09.81 Nasal congestion
CPT/HCPCS: 99281; 99283